=== PATIENT | male | born 1965 | race African-American/Black ===

== ENCOUNTER 2019-08-06 11:14 | Emergency (ER) | payer OTHER, SELFPAY ==
[2019-08-06] MEDS ORDERED: HYDROcodone/Acetaminophen 10/325 mg Tablet ONE (14:36)
--- NOTE | 2019-08-06 14:57 | ULT ---
ULTRASOUND WITH DOPPLER DUPLEX VENOUS LOWER EXTREMITY RIGHT: DATE: 08/06/2019 HISTORY: 54-year-old male with right lower extremity pain and edema. TECHNIQUE: Color flow Doppler, spectral waveform analysis of pulsed Doppler, and steinberg-scale imaging with jairo tarun and augmentation, were used to evaluate the right common femoral, femoral, popliteal, posterior tibial, and superficial femoral, veins; and the proximal portions of the profunda femoral and greater saphenous, veins. FINDINGS: There is normal compressibility, demonstration of blood flow by color Doppler and pulsed Doppler, and response to augmentation, in all interrogated veins. There is an approximately 5 x 4.5 x 3.5 cm cystic lesion in the right popliteal fossa containing mult iple septations, and no internal blood flow. IMPRESSION: 1. No deep vein thrombosis in the right lower extremity. 2. Complex Washburn's cyst. jn [] POS: CET
== END 2019-08-06 15:25 | disposition home or self-care (01) ==
LOC: ERS 11:14
DX: M71.21 Synovial cyst of popliteal space [Baker], right knee (principal); E11.9 Type 2 diabetes mellitus without complications; E78.5 Hyperlipidemia, unspecified

== ENCOUNTER 2020-04-17 12:16 | Emergency (ER) | payer OTHER ==
[2020-04-17] MEDS ORDERED: Ketorolac Tromethamine 30 MG/ML VIAL ONE (14:08)
[2020-04-17] MEDS ORDERED: Morphine 4 MG/ML VIAL ONE (14:08)
== END 2020-04-17 15:20 | disposition home or self-care (01) ==
LOC: ERS 12:16
DX: M46.1 Sacroiliitis, not elsewhere classified (principal); E11.9 Type 2 diabetes mellitus without complications; E78.5 Hyperlipidemia, unspecified; Z79.84 Long term (current) use of oral hypoglycemic drugs; Z79.899 Other long term (current) drug therapy
CPT/HCPCS: 96372; 99283; J1885; J2270

== ENCOUNTER 2020-05-29 12:31 | Emergency (ER) | payer BC, SELFPAY ==
[2020-05-29 22:18] LABS: SARS-CoV-2 MS2 Positive; SARS-CoV-2 N Gene Negative; SARS-CoV-2 S Gene Negative; SARS-CoV-2 by NAA Not Detected (NotDetected); SARS-CoV-2 orf1ab Negative
== END 2020-05-29 13:37 | disposition home or self-care (01) ==
LOC: ERS 12:31
DX: R19.7 Diarrhea, unspecified (principal); R11.0 Nausea; Z20.828 Contact with and (suspected) exposure to other viral communicable diseases; E11.9 Type 2 diabetes mellitus without complications; E78.5 Hyperlipidemia, unspecified
CPT/HCPCS: 87635; 99284; U0003